=== PATIENT | female | born 1965 | race American Indian/Alaskan Native ===

== ENCOUNTER 2017-03-10 10:11 | Outpatient (CLI) | payer OTHER ==
--- NOTE | 2017-03-10 10:56 | XRay Report ---
The left shoulder 3 views: History: Shoulder pain. Findings: No bony or articular abnormality. No fracture dislocation or soft tissue calcification. Impression: Essentially negative left shoulder.
== END 2017-03-10 10:12 | disposition home or self-care (01) ==
LOC: SPVIMAG 10:11
PROVIDERS: ATTEND Orthopaedic Surgery
DX: M25.512 Pain in left shoulder (principal)

== ENCOUNTER 2017-05-22 10:05 | Outpatient (CLI) | payer OTHER ==
--- NOTE | 2017-05-22 10:36 | XRay Report ---
Left shoulder: Trauma, contusion. AP and oblique views of the left shoulder demonstrate normal bone and soft tissue shoulder anatomy. No evidence of fracture. No interval change compared to prior exam in March 2017. Of note however is that the mid humerus is currently included on the exam demonstrating a prominent groove appearing deformity in the proximal shaft. The significance is unclear but most likely chronic and possible developmental. Impression: No acute finding.
== END 2017-05-22 10:06 | disposition home or self-care (01) ==
LOC: SPVIMAG 10:05
PROVIDERS: ATTEND Orthopaedic Surgery
DX: M25.512 Pain in left shoulder (principal)

== ENCOUNTER 2018-01-04 13:41 | Outpatient (CLI) | payer OTHER ==
--- NOTE | 2018-01-04 15:13 | Ultrasound Report ---
RIGHT AXILLARY/ BREAST ULTRASOUND: 01/04/18 13:41:00 CLINICAL: A 2 cm right axillary lymph node for which a biopsy was recommended. COMPARISON: Recent ultrasound images from Dr. Garner. FINDINGS: Ultrasound of the right axillademonstrated three small lymph nodes with benign morphology and no abnormal or enlarged lymph nodes. These three lymph nodes with central fat and benign morphology measure 1.0 1.1 x 0.5 cm, 0.7 x 0.4 x 0.6 cm and 0.6 x 0.3 x 0.5 cm. IMPRESSION: Benign right axillary lymph nodes. BI-RADS 2 - - Benign RECOMMENDATION: Clinical followup and routine mammographic screening based on ACS guidelines.
== END 2018-01-04 13:42 | disposition home or self-care (01) ==
LOC: SPVWC 13:41
PROVIDERS: ATTEND Surgery
DX: N63.10 Unspecified lump in the right breast, unspecified quadrant (principal)

== ENCOUNTER 2018-06-12 10:08 | Outpatient (CLI) | payer OTHER ==
--- NOTE | 2018-06-12 10:48 | Mammography Report ---
BILATERAL DIGITAL SCREENING MAMMOGRAM with CAD : 06/12/18 10:08:00 CLINICAL: Routine screening. COMPARISON:05/30/17 [facility] [place] FINDINGS: The breasts are heterogeneously dense, which may obscure small masses.A few scattered bilateral benign calcifications. No mass, architectural distortion or suspicious calcifications. IMPRESSION: No mammographic evidence of malignancy. BI-RADS CATEGORY: 2 -- Benign RECOMMENDATION: Routine mammographic screening in one year. COMMENT: Patient follow-up letters are generated by our [employer] application.
== END 2018-06-12 10:09 | disposition home or self-care (01) ==
LOC: SPVWC 10:08
PROVIDERS: ATTEND Surgery
DX: Z12.31 Encounter for screening mammogram for malignant neoplasm of breast (principal)
CPT/HCPCS: 77067

== ENCOUNTER 2020-12-31 08:55 | Outpatient (CLI) | payer OTHER ==
--- NOTE | 2020-12-31 11:15 | Mammography Report ---
BILATERAL DIGITAL DIAGNOSTIC MAMMOGRAM WITH CAD WITH TOMOSYNTHESIS, 12/31/2020 BILATERAL LIMITED BREAST ULTRASOUND CLINICAL INFORMATION / INDICATION: Patient presents for evaluation of areas of focal pain and palpabl e concern in both breasts. MASTODYNIA TECHNIQUE: Digital bilateral mammographic imaging was performed. Limited ultrasound was performed. Th is examination was interpreted with the benefit of Computer-Aided Detection (CAD) analysis. COMPARISON: Prior mammogram 06/12/2018 FINDINGS: Breast Density: The breasts are heterogeneously dense, which may obscure small masses. MAMMOGRAPHIC FINDINGS: No dominant mass, suspicious calcifications, or architectural distortion in ei ther breast. There are stable benign-appearing scattered calcifications seen in both breasts. There h as been no significant change compared with the prior examinations. There is no mammographic abnormal ity to account for the areas of palpable concern in both breasts, therefore targeted bilateral breast ultrasound was subsequently performed. ULTRASOUND FINDINGS: Targeted ultrasound evaluation was performed of the area of interest. Right breast: Targeted ultrasound of the area of palpable concern in the lower inner quadrant of the right breast reveals mild benign duct ectasia. No suspicious cystic or solid lesion identified. Left breast: Targeted ultrasound of the area of palpable concern in the upper outer quadrant of the l eft breast reveals mild benign duct ectasia. No suspicious cystic or solid lesion identified. IMPRESSION: 1. Mild benign duct ectasia seen in both breasts. There is no suspicious mammographic or sonographic abnormality to account for the areas of focal pain and palpable concern, therefore clinical correlati on is recommended. Follow up recommendation: Routine yearly BI-RADS Category 2: Benign. A "normal" or negative report should not discourage follow up or biopsy of a clinically significant f inding. A written summary of these findings will be mailed to the patient. The patient will be entered into a mammography reporting system which will generate a reminder letter for the patient's next appointmen t at the appropriate interval. According to the [employer], yearly mammograms are recommended starting at age 40 and continuing as long as a woman is in good health. Breast MRI is recommended for women with an rufus roximately 20-25% or greater lifetime risk of breast cancer, including women with a strong family his tory of breast or ovarian cancer and women who have been treated for Hodgkin's disease. Signer Name: Geovanna Vazquez MD Signed: 12/31/2020 11:10 AM Workstation Name: [employer]
== END 2020-12-31 08:56 | disposition home or self-care (01) ==
LOC: SPVWC 08:55
PROVIDERS: ATTEND Surgery
DX: N60.42 Mammary duct ectasia of left breast (principal); N60.41 Mammary duct ectasia of right breast; N64.4 Mastodynia
CPT/HCPCS: 76642; 77066; G0279